=== PATIENT | male | born 1990 | race Caucasian/White ===

== ENCOUNTER 2016-12-20 18:08 | Emergency (ER) | payer BC ==
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
[2016-12-20] MEDS ORDERED: Lidocaine 1%* 5 ML VIAL INJ ONE (19:42)
[2016-12-20] MEDS ORDERED: Lidocaine 1% MPF* 2 ML VIAL INJ ONE (19:52)
[2016-12-20] MEDS ORDERED: Lidocaine 1% MPF* 2 ML VIAL ONE (20:00)
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
[2016-12-20] MEDS ORDERED: Amoxicillin/Clavulanate TAB* 500 MG PO ONE (20:27)
[2016-12-20 20:49] VITALS: BP 119/77
== END 2016-12-20 20:40 | disposition home or self-care (01) ==
LOC: UCEAST 18:08
DX: S81.011A Laceration without foreign body, right knee, initial encounter (principal); V19.3XXA Pedal cyclist (driver) (passenger) injured in unspecified nontraffic accident, initial encounter; Y93.55 Activity, bike riding; Y92.9 Unspecified place or not applicable; Y99.9 Unspecified external cause status
CPT/HCPCS: 12001; 12002; 13121; 99202; A9270-GY; G0463